=== PATIENT | male | born 1980 | race American Indian/Alaskan Native ===

== ENCOUNTER 2016-11-13 13:30 | Outpatient (CLI) | payer BC ==
--- NOTE | 2016-11-13 14:11 | XRay Report ---
RIGHT WRIST, 4 VIEWS: History: wrist pain, injury. Routine views demonstrate the carpal bones to be well mineralized with well preserved bony mineralization and interosseous joint spaces. The carpal and adjacent articular bones have normal contours. The surrounding soft tissues are unremarkable. IMPRESSION: Unremarkable right wrist.
== END 2016-11-13 13:31 | disposition home or self-care (01) ==
LOC: XRAY 13:30
PROVIDERS: ATTEND Internal Medicine
DX: M25.531 Pain in right wrist (principal); S69.91XD Unspecified injury of right wrist, hand and finger(s), subsequent encounter; X58.XXXD Exposure to other specified factors, subsequent encounter